=== PATIENT | female | born 2000 | race Two or more races ===

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

== ENCOUNTER 2023-03-10 13:53 | Emergency (ER) | payer OTHER ==
[~2023-03-10] VITALS: Ht 152.4 cm; Wt 52.2 kg
[2023-03-10 15:15] VITALS: BP 99/48
== END 2023-03-10 16:12 | disposition home or self-care (01) ==
LOC: ER 13:53
DX: S16.1XXA Strain of muscle, fascia and tendon at neck level, initial encounter (principal); V43.52XA Car driver injured in collision with other type car in traffic accident, initial encounter; Y93.89 Activity, other specified; Y92.488 Other paved roadways as the place of occurrence of the external cause; Y99.8 Other external cause status
CPT/HCPCS: 72040